=== PATIENT | male | born 1930 | race Caucasian/White ===

== ENCOUNTER 2017-01-21 08:58 | Outpatient (CLI) | payer MEDICARE, OTHER ==
[2017-01-21 14:25] LABS: ALBUMIN/GLOBULIN RATIO 1.2 (1.0-2.2); BILIRUBIN,TOTAL 0.6 mg/dL (0.2-1.0); CALCIUM 9.1 mg/dL (8.5-10.3); CREATININE 0.9 mg/dL (0.6-1.2); POTASSIUM 4.3 mmol/L (3.5-5.0); TOTAL PROTEIN 7.5 g/dL (6.7-8.2); URIC ACID 6.1 mg/dL (2.6-7.2)
== END 2017-01-21 08:59 | disposition home or self-care (01) ==
LOC: LAB.WCP 08:58
PROVIDERS: ATTEND Family Medicine
DX: M79.674 Pain in right toe(s) (principal)
CPT/HCPCS: 36415; 80053; 84550

== ENCOUNTER 2017-10-06 08:00 | Outpatient (CLI) | payer MEDICARE, OTHER ==
[2017-10-06 19:25] LABS: BASOPHILS # (AUTO) 0.1 10^3/uL (0.0-0.1); BASOPHILS % (AUTO) 2.6 %; EOSINOPHILS # (AUTO) 0.1 10^3/uL (0.0-0.7); EOSINOPHILS % (AUTO) 2.8 %; HGB - HEMOGLOBIN 11.6 g/dL (14.0-18.0); LYMPHOCYTES # (AUTO) 1.3 10^3/uL (1.5-3.5); LYMPHOCYTES % (AUTO) 25.4 %; MEAN CORPUSCULAR HEMOGLOBIN 30.6 pg (27.0-31.0); MEAN CORPUSCULAR HGB CONC 32.8 g/dL (32.0-36.0); MEAN CORPUSCULAR VOLUME 93.5 fL (80.0-94.0); MEAN PLATELET VOLUME 8.5 fL (7.4-11.4); MONOCYTES # (AUTO) 0.7 10^3/uL (0.0-1.0); MONOCYTES % (AUTO) 12.9 %; NEUTROPHILS # (AUTO) 2.9 10^3/uL (1.5-6.6); NEUTROPHILS % (AUTO) 56.3 %; PLT - PLATELET COUNT 266 10^3/uL (130-450); RED BLOOD COUNT 3.77 10^6/uL (4.70-6.10); RED CELL DISTRIBUTION WIDTH 14.1 % (12.0-15.0); WHITE BLOOD COUNT 5.1 x10^3/uL (4.8-10.8)
== END 2017-10-06 08:01 | disposition home or self-care (01) ==
LOC: LAB.WCP 08:00
PROVIDERS: ATTEND Family Medicine
DX: R42 Dizziness and giddiness (principal); K64.9 Unspecified hemorrhoids
CPT/HCPCS: 36415; 85025

== ENCOUNTER 2017-10-16 08:39 | Day surgery (SDC) | payer MEDICARE, OTHER ==
[2017-10-16] MEDS ORDERED: LACTATED RINGERS 1,000 ML IV ONE (09:02)
[2017-10-16] MEDS ORDERED: PROPOFOL 200 MG/20 ML VIAL IVP ONE (11:25)
[2017-10-16] MEDS ORDERED: LIDOCAINE-MPF 2% 5 ML VIAL IM ONE (11:25)
[2017-10-16 12:39] VITALS: BP 141/79
== END 2017-10-16 08:40 | disposition home or self-care (01) ==
LOC: SDS 08:39
PROVIDERS: ATTEND Surgery
PROC: 0DJD8ZZ Inspection of Lower Intestinal Tract, Via Natural or Artificial Opening Endoscopic (ICD-10-PCS; principal; 2017-10-16 09:45)
DX: K92.1 Melena (principal); K57.30 Diverticulosis of large intestine without perforation or abscess without bleeding; I48.91 Unspecified atrial fibrillation; Z79.01 Long term (current) use of anticoagulants; Z87.891 Personal history of nicotine dependence
CPT/HCPCS: 45378; J7120

== ENCOUNTER 2017-12-02 09:46 | Outpatient (CLI) | payer MEDICARE, OTHER ==
[2017-12-02 13:46] LABS: BASOPHILS # (AUTO) 0.1 10^3/uL (0.0-0.1); BASOPHILS % (AUTO) 0.9 %; EOSINOPHILS # (AUTO) 0.2 10^3/uL (0.0-0.7); EOSINOPHILS % (AUTO) 3.6 %; HGB - HEMOGLOBIN 12.9 g/dL (14.0-18.0); LYMPHOCYTES # (AUTO) 1.4 10^3/uL (1.5-3.5); LYMPHOCYTES % (AUTO) 24.1 %; MEAN CORPUSCULAR HEMOGLOBIN 30.9 pg (27.0-31.0); MEAN CORPUSCULAR HGB CONC 33.8 g/dL (32.0-36.0); MEAN CORPUSCULAR VOLUME 91.5 fL (80.0-94.0); MEAN PLATELET VOLUME 8.8 fL (7.4-11.4); MONOCYTES # (AUTO) 0.7 10^3/uL (0.0-1.0); MONOCYTES % (AUTO) 12.5 %; NEUTROPHILS # (AUTO) 3.4 10^3/uL (1.5-6.6); NEUTROPHILS % (AUTO) 58.9 %; PLT - PLATELET COUNT 230 10^3/uL (130-450); RED BLOOD COUNT 4.18 10^6/uL (4.70-6.10); WHITE BLOOD COUNT 5.8 x10^3/uL (4.8-10.8)
[2017-12-02 14:16] LABS: % IRON SATURATION 31 % (20-50); IRON 83 ug/dL (45-182); TOTAL IRON BINDING CAPACITY 269 ug/dL (250-450); TRANSFERRIN 192 mg/dL (180-329)
== END 2017-12-02 09:47 | disposition home or self-care (01) ==
LOC: LAB.WCP 09:46
PROVIDERS: ATTEND Family Medicine
DX: D50.9 Iron deficiency anemia, unspecified (principal)
CPT/HCPCS: 36415; 82728; 83540; 84466; 85025

== ENCOUNTER 2018-10-08 09:51 | Emergency (ER) | payer MEDICARE, OTHER ==
[2018-10-08 10:24] LABS: BASOPHILS # (AUTO) 0.1 10^3/uL (0.0-0.1); BASOPHILS % (AUTO) 1.5 %; EOSINOPHILS # (AUTO) 0.2 10^3/uL (0.0-0.7); HGB - HEMOGLOBIN 13.4 g/dL (14.0-18.0); LYMPHOCYTES # (AUTO) 1.3 10^3/uL (1.5-3.5); LYMPHOCYTES % (AUTO) 25.2 %; MEAN CORPUSCULAR HEMOGLOBIN 30.9 pg (27.0-31.0); MEAN CORPUSCULAR HGB CONC 33.6 g/dL (32.0-36.0); MEAN CORPUSCULAR VOLUME 92.1 fL (80.0-94.0); MEAN PLATELET VOLUME 7.8 fL (7.4-11.4); MONOCYTES # (AUTO) 0.7 10^3/uL (0.0-1.0); MONOCYTES % (AUTO) 14.6 %; NEUTROPHILS # (AUTO) 2.7 10^3/uL (1.5-6.6); NEUTROPHILS % (AUTO) 54.7 %; PLT - PLATELET COUNT 234 10^3/uL (130-450); RED BLOOD COUNT 4.33 10^6/uL (4.70-6.10); RED CELL DISTRIBUTION WIDTH 13.9 % (12.0-15.0)
[2018-10-08 10:36] LABS: ALBUMIN/GLOBULIN RATIO 1.1 (1.0-2.2); BILIRUBIN,TOTAL 0.7 mg/dL (0.2-1.0); CALCIUM 9.1 mg/dL (8.5-10.3); CREATININE 0.9 mg/dL (0.6-1.2); TOTAL PROTEIN 7.6 g/dL (6.7-8.2)
--- NOTE | 2018-10-08 10:52 | XRAY Report ---
Reason: chest pain Procedure Date: 10/08/2018 Accession Number: [id number] / [id number] Procedure: XR - Chest 2 View X-Ray CPT Code: 15378 FULL RESULT: EXAM: CHEST RADIOGRAPHY EXAM DATE: 10/08/2018 10:34 AM. CLINICAL HISTORY: Chest pain. COMPARISON: None. TECHNIQUE: 2 views. FINDINGS: Lungs/Pleura: No focal opacities evident. No pleural effusion. No pneumothorax. Normal volumes. Mediastinum: Heart and mediastinal contours are unremarkable. Other: None. IMPRESSION: No focal consolidation. RADIA
--- NOTE | 2018-10-08 12:21 | ED Physician Documentation ---
PD HPI CHEST PAIN - Stated complaint Stated Complaint: PAINS UPPER LEFT PAINS IN CHEST - Chief complaint Chief Complaint: Cardiac - History obtained from History obtained from: Patient, Family () - History of Present Illness Timing - onset: Last night - Additional information Additional information: The patient is an 88-year-old male with history of atrial fibrillation, who presents with episodic sharp pain in his left lower chest. It first occurred during the night, and was fleeting. He then had another episode this morning while brushing his teeth. It lasts for just seconds at a time, and this morning he was able to palpate the area of discomfort. There is no change with inspiration, activity, position, or eating. He reports history of a similar episode that occurred months ago but was brief, and he did not seek medical attention at that time. Past history significant for atrial fibrillation for which he is on Coumadin. 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 Review of Systems Constitutional: denies: Fever, Myalgias Nose: denies: Congestion Throat: denies: Sore throat Cardiac: reports: Chest pain / pressure. denies: Palpitations Respiratory: denies: Dyspnea, Cough GI: denies: Abdominal Pain, Nausea, Vomiting : denies: Dysuria Skin: denies: Rash Musculoskeletal: denies: Back pain, Extremity pain, Extremity swelling Neurologic: denies: Focal weakness, Numbness, Headache PD PAST MEDICAL HISTORY - Past Medical History Past Medical History: Yes Cardiovascular: Atrial fibrillation Respiratory: None Neuro: CVA Endocrine/Autoimmune: None GI: None : Benign prostate hypertrophy HEENT: None Psych: None Musculoskeletal: Osteoarthritis Derm: None - Past Surgical History Past Surgical History: Yes General: Colonoscopy Ortho: Knee replacement, Carpal Tunnel surgery HEENT: Cataracts - Present Medications Home Medications: Ambulatory Orders Medication Instructions Recorded Confirmed Docusate Sodium 100 mg PO DAILY PRN 09/11/15 10/08/18 Finasteride 5 mg PO DAILY 09/11/15 10/08/18 Multivitamin [Multiple Vitamins] 1 each PO DAILY 10/15/17 10/08/18 Latanoprost 0.005% Ophth Drops 1 drops OPTH QPM 10/16/17 10/08/18 [Xalatan Ophth Drops] Silodosin [Rapaflo] 4 mg PO DAILY 04/29/18 10/08/18 Warfarin Sodium [Coumadin] 2.5 mg PO DAILY 04/29/18 10/08/18 - Allergies Allergies/Adverse Reactions: Allergies Allergy/AdvReac Type Severity Reaction Status Date / Time bacitracin Allergy Rash Verified 10/08/18 10:07 [From Neosporin ([id number])] bacitracin zinc * Allergy Rash Verified 10/08/18 10:07 [From Neosporin ([id number])] neomycin sulfate * Allergy Rash Verified 10/08/18 10:07 [From Neosporin ([id number])] polymyxin B Allergy Rash Verified 10/08/18 10:07 [From Neosporin ([id number])] - Social History Does the pt smoke?: No Smoking Status: Never smoker Does the pt have substance abuse?: No - Immunizations Immunizations are current?: No Immunizations: TDAP >10years/unknown - POLST Patient has POLST: No PD ED PE NORMAL - Vitals Vital signs reviewed: Yes (normal) - General General: Alert and oriented X 3, Well developed/nourished - HEENT HEENT: Atraumatic, Moist mucous membranes, Pharynx benign - Neck Neck: No adenopathy, No JVD - Cardiac Cardiac: Other (Regular rate, irregularly irregular) - Respiratory Respiratory: No respiratory distress, Clear bilaterally, Other (There is no chest wall tenderness to palpation currently.) - Abdomen Abdomen: Soft, Non tender - Back Back: No CVA TTP, No spinal TTP - Derm Derm: No rash - Extremities Extremities: No edema, No calf tenderness / cord - Neuro Neuro: Alert and oriented X 3, No motor deficit, No sensory deficit Results - Vitals Vitals: Oxygen O2 Source Room air - EKG (time done) 10:02 Rate: Rate (enter#) (69) Rhythm: Atrial fibrillation Intervals: LBBB (incomplete) Ischemia: Q waves (in anterior leads V1-V2.) Compare to prior EKG: Old EKG unavailable Computer interpretation: Agree with computer - Labs Labs: Laboratory Tests 10/08/18 10/08/18 10/08/18 10:20 10:20 10:20 WBC 5.0 RBC 4.33 L Hgb 13.4 L Hct 39.9 L MCV 92.1 MCH 30.9 MCHC 33.6 RDW 13.9 Plt Count 234 MPV 7.8 Neut # (Auto) 2.7 Lymph # (Auto) 1.3 L Archer # (Auto) 0.7 Eos # (Auto) 0.2 Baso # (Auto) 0.1 Absolute Nucleated RBC 0.00 Nucleated RBC % 0.0 Sodium 135 Potassium 4.2 Chloride 98 L Carbon Dioxide 26 Anion Gap 11.0 BUN 22 H Creatinine 0.9 Estimated GFR (MDRD) 80 L Glucose 96 Calcium 9.1 Total Bilirubin 0.7 AST 19 ALT 15 Alkaline Phosphatase 65 Troponin I < 0.04 Total Protein 7.6 Albumin 4.0 Globulin 3.6 Albumin/Globulin Ratio 1.1 Lipase 47 PD MEDICAL DECISION MAKING - ED course Complexity details: reviewed results, re-evaluated patient, considered differential, d/w patient, d/w family ED course: The patient's presentation is most consistent with intercostal muscle spasms of the left lower chest wall. His pain is atypical for cardiac ischemia, and his EKG reveals no ischemic abnormalities, and his troponin is negative. His presentation does not suggest pneumonia, pneumothorax, or aortic dissection. I doubt pulmonary embolus. Chest x-ray is normal. Nose specific treatment was clinically indicated at this time. I discussed with him and his the results was workup, outpatient follow-up, as well as potentially worrisome signs or symptoms that should prompt reevaluation in the emergency department. Departure - Departure Disposition: 01 Home, Self Care Clinical Impression: Atypical chest pain, Muscle spasm Condition: Stable Instructions: ED Chest Pain NonCardiac, ED Spasm Muscle Follow-Up: Ramirez Lara MD [Provider Admit Priv/Credential] - Comments: Drink plenty of fluids. You can use Tylenol if needed for discomfort. Follow-up with your primary physician if not completely resolved within the next few days. Return to the emergency department if you develop increasing pain, shortness of breath, or otherwise worsening symptoms. Discharge Date/Time: 10/08/18 12:42
[2018-10-08 12:42] VITALS: BP 140/80
== END 2018-10-08 12:42 | disposition home or self-care (01) ==
LOC: ED 09:51
DX: R07.89 Other chest pain (principal); M62.838 Other muscle spasm; I48.91 Unspecified atrial fibrillation; Z79.01 Long term (current) use of anticoagulants; Z86.73 Personal history of transient ischemic attack (TIA), and cerebral infarction without residual deficits
CPT/HCPCS: 36415; 71046; 80053; 83690; 84484; 85025; 93005; 99283

== ENCOUNTER 2018-10-21 08:00 | Outpatient (CLI) | payer MEDICARE, OTHER | END 2018-10-21 23:59 | disposition home or self-care (01) | LOC: LAB.WCP 08:00 | PROVIDERS: ATTEND Family Medicine | DX: I48.0 Paroxysmal atrial fibrillation (principal); Z79.01 Long term (current) use of anticoagulants; I63.9 Cerebral infarction, unspecified | CPT/HCPCS: 81025 ==

== ENCOUNTER 2018-11-04 08:00 | Outpatient (CLI) | payer MEDICARE, OTHER | END 2018-11-04 23:59 | disposition home or self-care (01) | LOC: LAB.WCP 08:00 | PROVIDERS: ATTEND Family Medicine | DX: I48.91 Unspecified atrial fibrillation (principal); I63.9 Cerebral infarction, unspecified; Z79.01 Long term (current) use of anticoagulants | CPT/HCPCS: 81025 ==

== ENCOUNTER 2018-11-24 08:00 | Outpatient (CLI) | payer MEDICARE, OTHER | END 2018-11-24 23:59 | disposition home or self-care (01) | LOC: LAB.WCP 08:00 | PROVIDERS: ATTEND Family Medicine | DX: I48.91 Unspecified atrial fibrillation (principal); Z79.01 Long term (current) use of anticoagulants | CPT/HCPCS: 81025 ==

== ENCOUNTER 2018-11-25 12:39 | Outpatient (CLI) | payer MEDICARE, OTHER | END 2018-11-25 12:40 | disposition home or self-care (01) | LOC: DI 12:39 | PROVIDERS: ATTEND Family Medicine | DX: R06.09 Other forms of dyspnea (principal); I48.91 Unspecified atrial fibrillation; I08.1 Rheumatic disorders of both mitral and tricuspid valves | CPT/HCPCS: 93306 ==

== ENCOUNTER 2018-12-24 08:00 | Outpatient (CLI) | payer MEDICARE, OTHER | END 2018-12-24 23:59 | disposition home or self-care (01) | LOC: LAB.WCP 08:00 | PROVIDERS: ATTEND Family Medicine | DX: I48.91 Unspecified atrial fibrillation (principal); Z79.01 Long term (current) use of anticoagulants ==

== ENCOUNTER 2019-01-04 12:01 | Outpatient (CLI) | payer MEDICARE, OTHER ==
[2019-01-04 18:46] LABS: BASOPHILS # (AUTO) 0.1 10^3/uL (0.0-0.1); BASOPHILS % (AUTO) 1.3 %; EOSINOPHILS # (AUTO) 0.2 10^3/uL (0.0-0.7); EOSINOPHILS % (AUTO) 3.6 %; HGB - HEMOGLOBIN 12.9 g/dL (14.0-18.0); LYMPHOCYTES # (AUTO) 1.2 10^3/uL (1.5-3.5); LYMPHOCYTES % (AUTO) 25.9 %; MEAN CORPUSCULAR HEMOGLOBIN 30.9 pg (27.0-31.0); MEAN CORPUSCULAR HGB CONC 33.5 g/dL (32.0-36.0); MEAN CORPUSCULAR VOLUME 92.1 fL (80.0-94.0); MEAN PLATELET VOLUME 9.5 fL (7.4-11.4); MONOCYTES # (AUTO) 0.7 10^3/uL (0.0-1.0); MONOCYTES % (AUTO) 15.2 %; NEUTROPHILS # (AUTO) 2.6 10^3/uL (1.5-6.6); PLT - PLATELET COUNT 179 10^3/uL (130-450); RED BLOOD COUNT 4.19 10^6/uL (4.70-6.10); RED CELL DISTRIBUTION WIDTH 14.2 % (12.0-15.0); WHITE BLOOD COUNT 4.7 x10^3/uL (4.8-10.8)
== END 2019-01-04 12:02 | disposition home or self-care (01) ==
LOC: LAB.WCP 12:01
PROVIDERS: ATTEND Family Medicine
DX: I27.20 Pulmonary hypertension, unspecified (principal); R06.00 Dyspnea, unspecified
CPT/HCPCS: 36415; 85025

== ENCOUNTER 2019-01-12 13:08 | Outpatient (CLI) | payer MEDICARE, OTHER ==
[~2019-01-12 13:08] MED LIST: ALBUTEROL NEB 2.5 MG/3 ML INH ONE
== END 2019-01-12 13:09 | disposition home or self-care (01) ==
LOC: RT 13:08
PROVIDERS: ATTEND Family Medicine
DX: R06.09 Other forms of dyspnea (principal); I27.20 Pulmonary hypertension, unspecified
CPT/HCPCS: 94010

== ENCOUNTER 2019-01-21 08:00 | Outpatient (CLI) | payer MEDICARE, OTHER | END 2019-01-21 23:59 | disposition home or self-care (01) | LOC: LAB.WCP 08:00 | PROVIDERS: ATTEND Family Medicine | DX: I48.91 Unspecified atrial fibrillation (principal); I63.9 Cerebral infarction, unspecified; Z79.01 Long term (current) use of anticoagulants ==

== ENCOUNTER 2019-02-09 08:00 | Outpatient (CLI) | payer MEDICARE, OTHER ==
[2019-02-09 12:30] LABS: ALKALINE PHOSPHATASE 80 IU/L (42-121); ALT ALANINE AMINOTRANSFERASE 19 IU/L (10-60); AST ASPARTATE AMINOTRANSFERASE 21 IU/L (10-42); BILIRUBIN,TOTAL 1.1 mg/dL (0.2-1.0); BUN - BLOOD UREA NITROGEN 15 mg/dL (6-20); CALCIUM 9.1 mg/dL (8.5-10.3); CARBON DIOXIDE - CO2 25 mmol/L (21-32); CHLORIDE 104 mmol/L (101-111); CHOL/HDL RATIO 2.9 (<5.0); CHOLESTEROL 195 mg/dL; CREATININE 0.9 mg/dL (0.6-1.2); GFR - MDRD 80 (>89); GLUCOSE 91 mg/dL (70-100); HDL CHOLESTEROL 67 mg/dL; LDL CHOLESTEROL,CALCULATED 118 mg/dL; LDL/HDL RATIO 1.8 (<3.6); MAGNESIUM 2.2 mg/dL (1.7-2.8); SODIUM 138 mmol/L (135-145); TOTAL PROTEIN 7.9 g/dL (6.7-8.2); VLDL CHOLESTEROL 10 mg/dL
== END 2019-02-09 08:01 | disposition home or self-care (01) ==
LOC: LAB.WCP 08:00
PROVIDERS: ATTEND Internal Medicine Cardiovascular Disease
DX: I48.2 Chronic atrial fibrillation (principal); R06.02 Shortness of breath; I51.9 Heart disease, unspecified; I34.0 Nonrheumatic mitral (valve) insufficiency
CPT/HCPCS: 36415; 80053; 80061; 83721; 83735; 83880; 84443

== ENCOUNTER 2019-02-16 09:13 | Outpatient (CLI) | payer MEDICARE, OTHER ==
[2019-02-16 12:18] LABS: CALCIUM 8.9 mg/dL (8.5-10.3)
== END 2019-02-16 09:14 | disposition home or self-care (01) ==
LOC: LAB.WCP 09:13
PROVIDERS: ATTEND Internal Medicine Cardiovascular Disease
DX: I51.9 Heart disease, unspecified (principal)
CPT/HCPCS: 36415; 80048

== ENCOUNTER 2019-02-17 08:00 | Outpatient (CLI) | payer MEDICARE, OTHER | END 2019-02-17 08:01 | disposition home or self-care (01) | LOC: LAB.WCP 08:00 | PROVIDERS: ATTEND Family Medicine | DX: I48.91 Unspecified atrial fibrillation (principal); I63.9 Cerebral infarction, unspecified; Z79.01 Long term (current) use of anticoagulants ==

== ENCOUNTER 2019-03-03 08:00 | Outpatient (CLI) | payer MEDICARE, OTHER | END 2019-03-03 23:59 | disposition home or self-care (01) | LOC: LAB.WCP 08:00 | PROVIDERS: ATTEND Family Medicine | DX: I48.91 Unspecified atrial fibrillation (principal); I63.9 Cerebral infarction, unspecified; Z79.01 Long term (current) use of anticoagulants ==

== ENCOUNTER 2019-03-17 08:00 | Outpatient (CLI) | payer MEDICARE, OTHER | END 2019-03-17 23:59 | disposition home or self-care (01) | LOC: LAB.WCP 08:00 | PROVIDERS: ATTEND Family Medicine | DX: I48.0 Paroxysmal atrial fibrillation (principal); I63.9 Cerebral infarction, unspecified; Z79.01 Long term (current) use of anticoagulants ==

== ENCOUNTER 2019-03-18 08:00 | Outpatient (CLI) | payer MEDICARE, OTHER | END 2019-03-18 23:59 | LOC: LAB.WCP 08:00 | PROVIDERS: ATTEND Specialist | DX: N40.1 Benign prostatic hyperplasia with lower urinary tract symptoms (principal) | CPT/HCPCS: 36415; 84153 ==

== ENCOUNTER 2019-04-13 08:00 | Outpatient (CLI) | payer MEDICARE, OTHER ==
[2019-04-13 19:10] LABS: CALCIUM 8.7 mg/dL (8.5-10.3); CREATININE 0.9 mg/dL (0.6-1.2)
== END 2019-04-13 23:59 | disposition home or self-care (01) ==
LOC: LAB.WCP 08:00
PROVIDERS: ATTEND Internal Medicine Cardiovascular Disease
DX: I50.22 Chronic systolic (congestive) heart failure (principal)
CPT/HCPCS: 36415; 80048

== ENCOUNTER 2019-04-14 08:00 | Outpatient (CLI) | payer MEDICARE, OTHER | END 2019-04-14 23:59 | disposition home or self-care (01) | LOC: LAB.WCP 08:00 | PROVIDERS: ATTEND Family Medicine | DX: Z79.01 Long term (current) use of anticoagulants (principal); I48.91 Unspecified atrial fibrillation ==

== ENCOUNTER 2019-05-26 08:00 | Outpatient (CLI) | payer MEDICARE, OTHER | END 2019-05-26 23:59 | disposition home or self-care (01) | LOC: LAB.WCP 08:00 | PROVIDERS: ATTEND Family Medicine | DX: Z79.01 Long term (current) use of anticoagulants (principal); I48.91 Unspecified atrial fibrillation ==

== ENCOUNTER 2019-06-01 08:00 | Outpatient (CLI) | payer MEDICARE, OTHER | END 2019-06-01 23:59 | disposition home or self-care (01) | LOC: LAB.WCP 08:00 | PROVIDERS: ATTEND Family Medicine | DX: I48.91 Unspecified atrial fibrillation (principal); Z79.01 Long term (current) use of anticoagulants ==

== ENCOUNTER 2019-06-16 08:00 | Outpatient (CLI) | payer MEDICARE, OTHER | END 2019-06-16 23:59 | disposition home or self-care (01) | LOC: LAB.WCP 08:00 | PROVIDERS: ATTEND Family Medicine | DX: Z79.01 Long term (current) use of anticoagulants (principal); I48.91 Unspecified atrial fibrillation; I63.9 Cerebral infarction, unspecified ==

== ENCOUNTER 2019-06-28 08:36 | Outpatient (CLI) | payer MEDICARE, OTHER ==
--- NOTE | 2019-06-28 09:33 | XRAY Report ---
Reason: ROUTINE MAMMO Procedure Date: 06/28/2019 Accession Number: [id number] / [id number] Procedure: FL - Esophogram CPT Code: Final Report FULL RESULT: EXAM: BARIUM ESOPHAGRAM EXAM DATE: 06/28/2019 09:21 AM. CLINICAL HISTORY: Cough/reflux. COMPARISONS: None. TECHNIQUE: Routine double contrast esophagram. Fluoroscopy Time: 2 minutes 28 seconds. Number of Images: 33. FINDINGS: Swallowing Mechanism: Normal. No tracheal aspiration or penetration. Esophageal Motility: Ineffective peristaltic stripping wave and patulous appearance to the esophagus, mild. Mucosa: Normal. No ulcerations or masses. Gastroesophageal Junction: At least moderate spontaneous reflux is noted. No hernia or definite stricture. Mild holdup of the barium pill at the gastroesophageal junction with spontaneous progression into the stomach. Other: None. IMPRESSION: Moderate reflux. RADIA
[2019-06-28] MEDS ORDERED: BARIUM SULFATE 700 MG TABLET PO ONE (12:24)
[2019-06-28] MEDS ORDERED: SIMETHICONE/SOD BICARB/CIT AC 1 EACH PACKET PO ONE (12:24)
[2019-06-28] MEDS: BARIUM SULFATE 148 GM POWDER PO ONE ×2 (12:24→12:25)
[2019-06-28] MEDS ORDERED: BARIUM SULFATE 176 GM BOTTLE PO ONE (12:24)
== END 2019-06-28 08:37 | disposition home or self-care (01) ==
LOC: DI 08:36
PROVIDERS: ATTEND Family Medicine
DX: K21.9 Gastro-esophageal reflux disease without esophagitis (principal)
CPT/HCPCS: 74220; A9270

== ENCOUNTER 2019-07-07 08:00 | Outpatient (CLI) | payer MEDICARE, OTHER | END 2019-07-07 23:59 | disposition home or self-care (01) | LOC: LAB.WCP 08:00 | PROVIDERS: ATTEND Family Medicine | DX: Z79.01 Long term (current) use of anticoagulants (principal); I48.91 Unspecified atrial fibrillation ==

== ENCOUNTER 2019-07-21 08:00 | Outpatient (CLI) | payer MEDICARE, OTHER | END 2019-07-21 23:59 | disposition home or self-care (01) | LOC: LAB.WCP 08:00 | PROVIDERS: ATTEND Family Medicine | DX: Z79.01 Long term (current) use of anticoagulants (principal); I48.91 Unspecified atrial fibrillation ==

== ENCOUNTER 2019-08-10 08:00 | Outpatient (CLI) | payer MEDICARE, OTHER | END 2019-08-10 23:59 | disposition home or self-care (01) | LOC: LAB.WCP 08:00 | PROVIDERS: ATTEND Family Medicine | DX: Z79.01 Long term (current) use of anticoagulants (principal); I48.91 Unspecified atrial fibrillation ==

== ENCOUNTER 2019-08-25 08:00 | Outpatient (CLI) | payer MEDICARE, OTHER | END 2019-08-25 23:59 | disposition home or self-care (01) | LOC: LAB.WCP 08:00 | PROVIDERS: ATTEND Family Medicine | DX: Z79.01 Long term (current) use of anticoagulants (principal); I48.91 Unspecified atrial fibrillation ==

== ENCOUNTER 2019-09-08 08:00 | Outpatient (CLI) | payer MEDICARE, OTHER | END 2019-09-08 23:59 | disposition home or self-care (01) | LOC: LAB.WCP 08:00 | PROVIDERS: ATTEND Family Medicine | DX: Z79.01 Long term (current) use of anticoagulants (principal); I48.91 Unspecified atrial fibrillation ==

== ENCOUNTER 2019-09-28 14:48 | Outpatient (CLI) | payer MEDICARE, OTHER ==
[2019-09-28 18:35] LABS: BASOPHILS # (AUTO) 0.1 10^3/uL (0.0-0.1); BASOPHILS % (AUTO) 0.9 %; EOSINOPHILS # (AUTO) 0.3 10^3/uL (0.0-0.7); EOSINOPHILS % (AUTO) 5.7 %; HGB - HEMOGLOBIN 12.4 g/dL (14.0-18.0); LYMPHOCYTES # (AUTO) 1.3 10^3/uL (1.5-3.5); LYMPHOCYTES % (AUTO) 24.5 %; MEAN CORPUSCULAR HEMOGLOBIN 31.6 pg (27.0-31.0); MEAN CORPUSCULAR HGB CONC 32.5 g/dL (32.0-36.0); MEAN CORPUSCULAR VOLUME 96.9 fL (80.0-94.0); MEAN PLATELET VOLUME 11.4 fL (7.4-11.4); MONOCYTES # (AUTO) 0.7 10^3/uL (0.0-1.0); MONOCYTES % (AUTO) 12.9 %; NEUTROPHILS # (AUTO) 2.9 10^3/uL (1.5-6.6); NEUTROPHILS % (AUTO) 55.4 %; PLT - PLATELET COUNT 200 10^3/uL (130-450); RED BLOOD COUNT 3.93 10^6/uL (4.70-6.10); WHITE BLOOD COUNT 5.3 x10^3/uL (4.8-10.8)
[2019-09-28 18:59] LABS: ALBUMIN 4.1 g/dL (3.2-5.5); ALBUMIN/GLOBULIN RATIO 1.3 (1.0-2.2); BILIRUBIN,TOTAL 0.7 mg/dL (0.2-1.0); CALCIUM 9.3 mg/dL (8.5-10.3); TOTAL PROTEIN 7.2 g/dL (6.7-8.2)
== END 2019-09-28 23:59 | disposition home or self-care (01) ==
LOC: LAB.WCP 14:48
PROVIDERS: ATTEND Family Medicine
DX: I51.89 Other ill-defined heart diseases (principal); R06.09 Other forms of dyspnea; I42.9 Cardiomyopathy, unspecified
CPT/HCPCS: 36415; 80053; 83880; 84443; 85025

== ENCOUNTER 2019-10-06 08:00 | Outpatient (CLI) | payer MEDICARE, OTHER | END 2019-10-06 23:59 | disposition home or self-care (01) | LOC: LAB.WCP 08:00 | PROVIDERS: ATTEND Family Medicine | DX: I48.91 Unspecified atrial fibrillation (principal); Z79.01 Long term (current) use of anticoagulants | CPT/HCPCS: 81002 ==

== ENCOUNTER 2019-11-04 08:00 | Outpatient (CLI) | payer MEDICARE, OTHER | END 2019-11-04 23:59 | disposition home or self-care (01) | LOC: LAB.WCP 08:00 | PROVIDERS: ATTEND Family Medicine | DX: I48.91 Unspecified atrial fibrillation (principal); Z79.01 Long term (current) use of anticoagulants ==

== ENCOUNTER 2019-11-11 08:00 | Outpatient (CLI) | payer MEDICARE, OTHER | END 2019-11-11 23:59 | disposition home or self-care (01) | LOC: LAB.WCP 08:00 | PROVIDERS: ATTEND Family Medicine | DX: I27.20 Pulmonary hypertension, unspecified (principal); I48.91 Unspecified atrial fibrillation; Z79.01 Long term (current) use of anticoagulants ==

== ENCOUNTER 2019-11-25 08:00 | Outpatient (CLI) | payer MEDICARE, OTHER | END 2019-11-25 23:59 | disposition home or self-care (01) | LOC: LAB.WCP 08:00 | PROVIDERS: ATTEND Family Medicine | DX: I48.91 Unspecified atrial fibrillation (principal); Z79.01 Long term (current) use of anticoagulants; I63.9 Cerebral infarction, unspecified ==

== ENCOUNTER 2019-12-02 08:00 | Outpatient (CLI) | payer MEDICARE, OTHER | END 2019-12-02 23:59 | disposition home or self-care (01) | LOC: LAB.WCP 08:00 | PROVIDERS: ATTEND Family Medicine | DX: I48.91 Unspecified atrial fibrillation (principal); Z79.01 Long term (current) use of anticoagulants ==

== ENCOUNTER 2019-12-16 08:00 | Outpatient (CLI) | payer MEDICARE, OTHER | END 2019-12-16 23:59 | disposition home or self-care (01) | LOC: LAB.WCP 08:00 | PROVIDERS: ATTEND Family Medicine | DX: I48.91 Unspecified atrial fibrillation (principal); I63.9 Cerebral infarction, unspecified; Z79.01 Long term (current) use of anticoagulants ==

== ENCOUNTER 2020-01-12 08:00 | Outpatient (CLI) | payer MEDICARE, OTHER | END 2020-01-12 23:59 | disposition home or self-care (01) | LOC: LAB.WCP 08:00 | PROVIDERS: ATTEND Family Medicine | DX: I48.91 Unspecified atrial fibrillation (principal); Z79.01 Long term (current) use of anticoagulants; I63.9 Cerebral infarction, unspecified ==

== ENCOUNTER 2020-01-26 08:00 | Outpatient (CLI) | payer MEDICARE, OTHER | END 2020-01-26 23:59 | disposition home or self-care (01) | LOC: LAB.WCP 08:00 | PROVIDERS: ATTEND Family Medicine | DX: I48.91 Unspecified atrial fibrillation (principal); Z79.01 Long term (current) use of anticoagulants; I63.9 Cerebral infarction, unspecified ==

== ENCOUNTER 2020-02-08 08:00 | Outpatient (CLI) | payer MEDICARE, OTHER | END 2020-02-08 23:59 | disposition home or self-care (01) | LOC: LAB.WCP 08:00 | PROVIDERS: ATTEND Family Medicine | DX: I63.9 Cerebral infarction, unspecified (principal); Z79.01 Long term (current) use of anticoagulants; I48.91 Unspecified atrial fibrillation ==

== ENCOUNTER 2020-03-05 08:00 | Outpatient (CLI) | payer MEDICARE, OTHER | END 2020-03-05 23:59 | disposition home or self-care (01) | LOC: LAB.WCP 08:00 | PROVIDERS: ATTEND Family Medicine | DX: I48.91 Unspecified atrial fibrillation (principal); Z79.01 Long term (current) use of anticoagulants ==

== ENCOUNTER 2020-03-28 08:00 | Outpatient (CLI) | payer MEDICARE, OTHER | END 2020-03-28 23:59 | disposition home or self-care (01) | LOC: LAB.WCP 08:00 | PROVIDERS: ATTEND Physician Assistant Medical | DX: I48.91 Unspecified atrial fibrillation (principal) ==

== ENCOUNTER 2020-04-11 08:00 | Outpatient (CLI) | payer MEDICARE, OTHER | END 2020-04-11 23:59 | disposition home or self-care (01) | LOC: LAB.WCP 08:00 | PROVIDERS: ATTEND Family Medicine | DX: I48.91 Unspecified atrial fibrillation (principal); Z79.01 Long term (current) use of anticoagulants; I63.9 Cerebral infarction, unspecified ==

== ENCOUNTER 2020-05-02 08:00 | Outpatient (CLI) | payer MEDICARE, OTHER | END 2020-05-02 23:59 | disposition home or self-care (01) | LOC: LAB.WCP 08:00 | PROVIDERS: ATTEND Family Medicine | DX: Z79.01 Long term (current) use of anticoagulants (principal) ==

== ENCOUNTER 2020-05-16 08:00 | Outpatient (CLI) | payer MEDICARE, OTHER | END 2020-05-16 23:59 | disposition home or self-care (01) | LOC: LAB.WCP 08:00 | PROVIDERS: ATTEND Family Medicine | DX: Z79.01 Long term (current) use of anticoagulants (principal) ==

== ENCOUNTER 2020-06-06 08:00 | Outpatient (CLI) | payer MEDICARE, OTHER | END 2020-06-06 23:59 | disposition home or self-care (01) | LOC: LAB.WCP 08:00 | PROVIDERS: ATTEND Nurse Practitioner Family | DX: Z79.01 Long term (current) use of anticoagulants (principal) ==

== ENCOUNTER 2020-07-04 08:00 | Outpatient (CLI) | payer MEDICARE, OTHER | END 2020-07-04 23:59 | disposition home or self-care (01) | LOC: LAB.WCP 08:00 | PROVIDERS: ATTEND Nurse Practitioner | DX: Z79.01 Long term (current) use of anticoagulants (principal) ==

== ENCOUNTER 2020-08-01 08:00 | Outpatient (CLI) | payer MEDICARE, OTHER | END 2020-08-01 23:59 | disposition home or self-care (01) | LOC: LAB.WCP 08:00 | PROVIDERS: ATTEND Internal Medicine | DX: Z79.01 Long term (current) use of anticoagulants (principal) ==

== ENCOUNTER 2020-08-29 08:00 | Outpatient (CLI) | payer MEDICARE, OTHER | END 2020-08-29 23:59 | disposition home or self-care (01) | LOC: LAB.WCP 08:00 | PROVIDERS: ATTEND Internal Medicine | DX: Z79.01 Long term (current) use of anticoagulants (principal) ==

== ENCOUNTER 2020-10-03 08:00 | Outpatient (CLI) | payer MEDICARE, OTHER | END 2020-10-03 23:59 | disposition home or self-care (01) | LOC: LAB.WCP 08:00 | PROVIDERS: ATTEND Internal Medicine | DX: I48.91 Unspecified atrial fibrillation (principal); Z79.01 Long term (current) use of anticoagulants ==

== ENCOUNTER 2020-11-02 08:00 | Outpatient (CLI) | payer MEDICARE, OTHER | END 2020-11-02 23:59 | disposition home or self-care (01) | LOC: LAB.WCP 08:00 | PROVIDERS: ATTEND Internal Medicine | DX: I48.91 Unspecified atrial fibrillation (principal); Z79.01 Long term (current) use of anticoagulants; I63.9 Cerebral infarction, unspecified ==

== ENCOUNTER 2020-12-07 08:00 | Outpatient (CLI) | payer MEDICARE, OTHER | END 2020-12-07 23:59 | disposition home or self-care (01) | LOC: LAB.WCP 08:00 | PROVIDERS: ATTEND Internal Medicine | DX: Z79.01 Long term (current) use of anticoagulants (principal); I63.9 Cerebral infarction, unspecified; I48.91 Unspecified atrial fibrillation ==

== ENCOUNTER 2021-01-02 08:00 | Outpatient (CLI) | payer MEDICARE, OTHER | END 2021-01-02 23:59 | disposition home or self-care (01) | LOC: LAB.WCP 08:00 | PROVIDERS: ATTEND Internal Medicine | DX: I63.9 Cerebral infarction, unspecified (principal); I48.0 Paroxysmal atrial fibrillation; Z79.01 Long term (current) use of anticoagulants ==

== ENCOUNTER 2021-01-25 08:00 | Outpatient (CLI) | payer MEDICARE, OTHER ==
[2021-01-25 11:51] LABS: BASOPHILS # (AUTO) 0.1 10^3/uL (0.0-0.1); EOSINOPHILS # (AUTO) 0.2 10^3/uL (0.0-0.7); EOSINOPHILS % (AUTO) 4.1 %; HCT - HEMATOCRIT 36.6 % (42.0-52.0); HGB - HEMOGLOBIN 11.8 g/dL (14.0-18.0); LYMPHOCYTES # (AUTO) 1.1 10^3/uL (1.5-3.5); LYMPHOCYTES % (AUTO) 21.2 %; MEAN CORPUSCULAR HEMOGLOBIN 31.1 pg (27.0-31.0); MEAN CORPUSCULAR HGB CONC 32.2 g/dL (32.0-36.0); MEAN CORPUSCULAR VOLUME 96.3 fL (80.0-94.0); MEAN PLATELET VOLUME 10.2 fL (7.4-11.4); MONOCYTES # (AUTO) 0.7 10^3/uL (0.0-1.0); MONOCYTES % (AUTO) 12.5 %; NEUTROPHILS # (AUTO) 3.2 10^3/uL (1.5-6.6); NEUTROPHILS % (AUTO) 60.8 %; PLT - PLATELET COUNT 201 10^3/uL (130-450); RED CELL DISTRIBUTION WIDTH 13.2 % (12.0-15.0); WHITE BLOOD COUNT 5.2 x10^3/uL (4.8-10.8)
[2021-01-25 12:15] LABS: ALBUMIN/GLOBULIN RATIO 1.1 (1.0-2.2); ALKALINE PHOSPHATASE 82 IU/L (42-121); ALT ALANINE AMINOTRANSFERASE 15 IU/L (10-60); AST ASPARTATE AMINOTRANSFERASE 17 IU/L (10-42); BUN - BLOOD UREA NITROGEN 21 mg/dL (6-20); CALCIUM 9.1 mg/dL (8.5-10.3); CARBON DIOXIDE - CO2 25 mmol/L (21-32); CHLORIDE 100 mmol/L (101-111); CHOL/HDL RATIO 3.4 (<5.0); CHOLESTEROL 195 mg/dL; GFR - MDRD 70 (>89); GLUCOSE 90 mg/dL (70-100); HDL CHOLESTEROL 57 mg/dL; LDL CHOLESTEROL,CALCULATED 129 mg/dL; LDL/HDL RATIO 2.3 (<3.6); POTASSIUM 4.6 mmol/L (3.5-5.0); SODIUM 134 mmol/L (135-145); TOTAL PROTEIN 7.5 g/dL (6.7-8.2); TRIGLYCERIDES 47 mg/dL; VLDL CHOLESTEROL 9 mg/dL
[2021-01-25 12:25] LABS: THYROID STIMULATING HORMONE 4.31 uIU/mL (0.34-5.60)
== END 2021-01-25 23:59 | disposition home or self-care (01) ==
LOC: LAB.WCP 08:00
PROVIDERS: ATTEND Internal Medicine
DX: I42.9 Cardiomyopathy, unspecified (principal); E78.5 Hyperlipidemia, unspecified
CPT/HCPCS: 36415; 80053; 80061; 83721; 84443; 85025

== ENCOUNTER 2021-01-30 08:00 | Outpatient (CLI) | payer MEDICARE, OTHER | END 2021-01-30 23:59 | disposition home or self-care (01) | LOC: LAB.WCP 08:00 | PROVIDERS: ATTEND Internal Medicine | DX: Z79.01 Long term (current) use of anticoagulants (principal); I48.21 Permanent atrial fibrillation; Z86.73 Personal history of transient ischemic attack (TIA), and cerebral infarction without residual deficits ==

== ENCOUNTER 2021-02-27 08:00 | Outpatient (CLI) | payer MEDICARE, OTHER | END 2021-02-27 23:59 | disposition home or self-care (01) | LOC: LAB.WCP 08:00 | PROVIDERS: ATTEND Internal Medicine | DX: I48.21 Permanent atrial fibrillation (principal); Z79.01 Long term (current) use of anticoagulants; Z86.73 Personal history of transient ischemic attack (TIA), and cerebral infarction without residual deficits ==

== ENCOUNTER 2021-03-27 08:00 | Outpatient (CLI) | payer MEDICARE, OTHER | END 2021-03-27 23:59 | disposition home or self-care (01) | LOC: LAB.WCP 08:00 | PROVIDERS: ATTEND Internal Medicine | DX: Z79.01 Long term (current) use of anticoagulants (principal); I48.21 Permanent atrial fibrillation; Z86.73 Personal history of transient ischemic attack (TIA), and cerebral infarction without residual deficits ==

== ENCOUNTER 2021-04-02 08:00 | Outpatient (CLI) | payer MEDICARE, OTHER ==
[2021-04-02 18:09] LABS: BASOPHILS % (AUTO) 0.8 %; EOSINOPHILS # (AUTO) 0.3 10^3/uL (0.0-0.7); EOSINOPHILS % (AUTO) 5.9 %; HCT - HEMATOCRIT 38.3 % (42.0-52.0); HGB - HEMOGLOBIN 12.6 g/dL (14.0-18.0); LYMPHOCYTES # (AUTO) 1.1 10^3/uL (1.5-3.5); MEAN CORPUSCULAR HEMOGLOBIN 31.7 pg (27.0-31.0); MEAN CORPUSCULAR HGB CONC 32.9 g/dL (32.0-36.0); MEAN CORPUSCULAR VOLUME 96.5 fL (80.0-94.0); MEAN PLATELET VOLUME 11.2 fL (7.4-11.4); MONOCYTES # (AUTO) 0.8 10^3/uL (0.0-1.0); NEUTROPHILS % (AUTO) 57.9 %; PLT - PLATELET COUNT 210 10^3/uL (130-450); RED BLOOD COUNT 3.97 10^6/uL (4.70-6.10); WHITE BLOOD COUNT 5.3 x10^3/uL (4.8-10.8)
[2021-04-02 18:24] LABS: ALBUMIN 4.1 g/dL (3.2-5.5); ALBUMIN/GLOBULIN RATIO 1.2 (1.0-2.2); BILIRUBIN,TOTAL 1.1 mg/dL (0.2-1.0); CALCIUM 9.2 mg/dL (8.5-10.3); CREATININE 1.2 mg/dL (0.6-1.2); POTASSIUM 5.7 mmol/L (3.5-5.0); TOTAL PROTEIN 7.5 g/dL (6.7-8.2)
[2021-04-02 18:36] LABS: THYROID STIMULATING HORMONE 5.34 uIU/mL (0.34-5.60)
== END 2021-04-02 23:59 | disposition home or self-care (01) ==
LOC: LAB.WCP 08:00
PROVIDERS: ATTEND Family Medicine
DX: I51.9 Heart disease, unspecified (principal); I34.0 Nonrheumatic mitral (valve) insufficiency; I27.20 Pulmonary hypertension, unspecified; I48.21 Permanent atrial fibrillation; R06.02 Shortness of breath
CPT/HCPCS: 36415; 80053; 83880; 84443; 85025

== ENCOUNTER 2021-04-03 08:00 | Outpatient (CLI) | payer MEDICARE, OTHER | END 2021-04-03 23:59 | disposition home or self-care (01) | LOC: LAB.WCP 08:00 | PROVIDERS: ATTEND Internal Medicine | DX: I48.21 Permanent atrial fibrillation (principal); Z79.01 Long term (current) use of anticoagulants; Z86.73 Personal history of transient ischemic attack (TIA), and cerebral infarction without residual deficits ==

== ENCOUNTER 2021-04-10 09:38 | Outpatient (CLI) | payer MEDICARE, OTHER ==
[2021-04-10 12:15] LABS: CREATININE 1.2 mg/dL (0.6-1.2); POTASSIUM 4.7 mmol/L (3.5-5.0)
== END 2021-04-10 23:59 | disposition home or self-care (01) ==
LOC: LAB.WCP 09:38
PROVIDERS: ATTEND Family Medicine
DX: E87.5 Hyperkalemia (principal)
CPT/HCPCS: 36415; 80048

== ENCOUNTER 2021-04-17 08:00 | Outpatient (CLI) | payer MEDICARE, OTHER | END 2021-04-17 23:59 | disposition home or self-care (01) | LOC: LAB.WCP 08:00 | PROVIDERS: ATTEND Internal Medicine | DX: I48.21 Permanent atrial fibrillation (principal); Z79.01 Long term (current) use of anticoagulants; Z86.73 Personal history of transient ischemic attack (TIA), and cerebral infarction without residual deficits ==

== ENCOUNTER 2021-04-18 09:09 | Outpatient (CLI) | payer MEDICARE, OTHER | END 2021-04-18 09:10 | disposition home or self-care (01) | LOC: DI 09:09 | PROVIDERS: ATTEND Family Medicine | DX: I34.0 Nonrheumatic mitral (valve) insufficiency (principal); I27.20 Pulmonary hypertension, unspecified; I48.91 Unspecified atrial fibrillation; I07.1 Rheumatic tricuspid insufficiency; I87.8 Other specified disorders of veins; I77.810 Thoracic aortic ectasia; I28.8 Other diseases of pulmonary vessels | CPT/HCPCS: 93306 ==

== ENCOUNTER 2021-05-17 08:00 | Outpatient (CLI) | payer MEDICARE, OTHER | END 2021-05-17 23:59 | disposition home or self-care (01) | LOC: LAB.WCP 08:00 | PROVIDERS: ATTEND Internal Medicine | DX: Z79.01 Long term (current) use of anticoagulants (principal); I48.21 Permanent atrial fibrillation ==

== ENCOUNTER 2021-06-21 08:00 | Outpatient (CLI) | payer MEDICARE, OTHER | END 2021-06-21 23:59 | disposition home or self-care (01) | LOC: LAB.WCP 08:00 | PROVIDERS: ATTEND Internal Medicine | DX: I48.21 Permanent atrial fibrillation (principal); Z79.01 Long term (current) use of anticoagulants; Z86.73 Personal history of transient ischemic attack (TIA), and cerebral infarction without residual deficits ==

== ENCOUNTER 2021-07-19 08:00 | Outpatient (CLI) | payer MEDICARE, OTHER | END 2021-07-19 23:59 | disposition home or self-care (01) | LOC: LAB.WCP 08:00 | PROVIDERS: ATTEND Internal Medicine | DX: Z86.73 Personal history of transient ischemic attack (TIA), and cerebral infarction without residual deficits (principal); Z79.01 Long term (current) use of anticoagulants; I48.21 Permanent atrial fibrillation ==